=== PATIENT | male | born 1990 | race Caucasian/White ===

== ENCOUNTER 2019-12-29 16:05 | Emergency (ER) | payer OTHER ==
[~2019-12-29] VITALS: Ht 175.3 cm; Wt 81.6 kg
[2019-12-29 16:08] VITALS: BP 155/87
--- NOTE | 2019-12-29 16:08 | NUR ---
PT PLACED IN BED 11.
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
[2019-12-29] MEDS ORDERED: KETOROLAC 30 MG/ML VIAL IM ONE (17:00)
[2019-12-29] MEDS ORDERED: HYDROcodone/APAP 7.5/325 MG 1 TAB PO ONE (17:00)
[2019-12-29 18:00] VITALS: BP 155/87
--- NOTE | 2019-12-29 18:00 | NUR ---
Patient discharged with v/s stable. Written and verbal after care instructions given and explained. Patient alert, oriented and verbalized understanding of instructions. AMBULATORY with steady gait. All questions addressed prior to discharge. ID band removed. Patient advised to follow up with PMD. Rx of IBUPROFEN, TRAMADOL given. Patient educated on indication of medication including possible reaction and side effects. Opportunity to ask questions provided and answered.
== END 2019-12-29 18:00 | disposition home or self-care (01) ==
LOC: MED 16:05
DX: S42.012A Anterior displaced fracture of sternal end of left clavicle, initial encounter for closed fracture (principal); V89.2XXA Person injured in unspecified motor-vehicle accident, traffic, initial encounter; Y93.89 Activity, other specified; Y92.89 Other specified places as the place of occurrence of the external cause; Y99.8 Other external cause status
CPT/HCPCS: 29105; 73000; 73030; 96372; 99284; J1885